=== PATIENT | male | born 1950 | race Hispanic/Latino ===

== ENCOUNTER 2016-08-10 13:25 | Emergency (ER) | payer SELFPAY ==
[2016-08-10 13:31] VITALS: BMI 32.3
--- NOTE | 2016-08-10 13:44 | ED PDOC ---
Arrival/HPI - General Time Seen by Provider: 08/10/16 13:33 Historian: Patient - History of Present Illness Narrative History of Present Illness (Text): 08/10/16 13:42 Patient is a 66 year old male who presents to the emergency department from PMD for irregular heartrate and elevated blood pressure at the office prior to arrival. Patient reports L lower back pain since May. He reports that the pain is worse with movement. He reports that he thought the pain would resolve (as he had similar pain many years ago) but since it persisted for 3 months he visisted his PMD today. He denies mildline pain. He denies fever, weakness, numbness, urinary or bowel incontinence or saddle anesethsia. He reports that the PA in the office said his blood pressure was high and he had "an irregular heart rate" so she sent him in. he denies chest pain, shortness of breath, headache or vision changes. he reports compliance with BP medication. Past Medical History - Provider Review Nursing Documentation Reviewed: Yes - Tetanus Immunization Tetanus Immunization: Unknown - Cardiac Hx Hypertension: Yes - Psychiatric Hx Depression: No Hx Emotional Abuse: No Hx Physical Abuse: No Hx Substance Use: No - Surgical History Hx Appendectomy: Yes Hx Inguinal Hernia Repair: Yes (1989) Hx Tonsillectomy: Yes - Suicidal Assessment Feels Threatened In Home Enviroment: No Family/Social History - Physician Review Nursing Documentation Reviewed: Yes Family/Social History: Unknown Family HX Hx Alcohol Use: Yes Hx Substance Use: No Hx Substance Use Treatment: No Allergies/Home Meds Allergies/Adverse Reactions: Allergies No Known Allergies Allergy (Verified 08/10/16 13:31) Home Medications: Home Meds Medication Instructions Recorded Confirmed Aspirin [Aspir 81] 81 mg PO DAILY 06/25/13 08/10/16 Hydrochlorothiazide [Microzide] 12.5 mg PO DAILY 08/10/16 08/10/16 Losartan [Cozaar] 100 mg PO DAILY 08/10/16 08/10/16 Review of Systems - Review of Systems Constitutional: absent: Fatigue, Weight Change, Fevers, Night Sweats Eyes: absent: Vision Changes, Photophobia ENT: absent: Hearing Changes Respiratory: absent: SOB, Cough, Sputum, Wheezing Cardiovascular: absent: Chest Pain, Palpitations, Edema, Calf Pain, HUDSON, Orthopnea, Syncope Gastrointestinal: absent: Abdominal Pain, Constipation, Diarrhea, Nausea, Vomiting Genitourinary Male: absent: Dysuria Musculoskeletal: Back Pain (chronic x 3 months) Skin: absent: Rash Neurological: Other (No weakness or numbness). absent: Headache, Dizziness, Gait Changes, Speech Changes Endocrine: absent: Diaphoresis Psychiatric: absent: Depression Physical Exam Vital Signs Temp Pulse Resp BP Pulse Ox 08/10/16 16:07 76 18 147/106 H 97 08/10/16 13:45 98.2 F 87 18 143/101 H 97 Temperature: Afebrile Blood Pressure: Hypertensive Pulse: Regular Respiratory Rate: Normal Appearance: Positive for: Well-Appearing, Non-Toxic, Comfortable Pain Distress: None Mental Status: Positive for: Alert and Oriented X 3 - Systems Exam Head: Present: Atraumatic, Normocephalic Pupils: Present: PERRL Extroacular Muscles: Present: EOMI Conjunctiva: Present: Normal Mouth: Present: Moist Mucous Membranes Neck: Present: Normal Range of Motion Respiratory/Chest: Present: Clear to Auscultation, Good Air Exchange. No: Respiratory Distress, Accessory Muscle Use Cardiovascular: Present: Regular Rate and Rhythm, Normal S1, S2. No: Murmurs Abdomen: Present: Normal Bowel Sounds. No: Tenderness, Distention, Peritoneal Signs Back: Present: Normal Inspection, Other (area of pain to L lumbar region (non- tender on exam)). No: Midline Tenderness Upper Extremity: Present: Normal Inspection. No: Cyanosis, Edema Lower Extremity: Present: Normal Inspection. No: Edema Neurological: Present: GCS=15, CN II-XII Intact, Speech Normal, Motor Func Grossly Intact, Normal Sensory Function, Gait Normal Skin: Present: Warm, Dry, Normal Color. No: Rashes Psychiatric: Present: Alert, Oriented x 3, Normal Insight, Normal Concentration Medical Decision Making ED Course and Treatment: Impression: 66 year old male presents from PMD for irregular heartrate and elevated blood pressure. He has asymptomatic htn on arrival. No ekg or rhythm strip was sent with patient and i am unaware what irregular heart rate was. Denies chest pain. Spoke to Dr. Cruz who is also not aware. Will evaluate chronic back pain with imagina and ua. Plan: Presentation not consistent with hypertensive urgency. Will get UA to evaluate back pain. --EKG -- XR lumbar spine Progress Notes: EKG shows NSR at 78 BPM with left axis deviation and LVH. QRS:128. No acute ST elevations. No prior for comparison but no irregularity noted and clear p waves. PROCEDURE: Radiographs of the Lumbar Spine. Electronics Recycler : Daniel Solorio MD FINDINGS: BONES: Vertebral bodies are maintained in height. Transverse processes and posterior elements appear intact. There is narrowing of the L2-3 intervertebral disc space consistent with degenerative disc disease. There is grade 1 anterolisthesis at L4-5. There is no evidence of spondylolysis. DISC SPACES: Narrowing of the L2-3 disc space. Remaining disc spaces are maintained in height. OTHER FINDINGS: Right hip arthroplasty. Two left lower pole renal calculi, 8-9 mm each. IMPRESSION: Degenerative disc disease L2-3. Grade 1 anterolisthesis at L4-5. Two left lower pole renal calculi as above. 08/10/16 16:11 Patient was made aware of his renal stones. UA negative. He continues to have asymptomatic htn. He was instructed on warning signs and the importance of avoiding salt, taking medication and following up with PMD. He was also instructed on the importance of following up with [facility] for likely holter monitor for further evaluation of "irregular rhythm" seen by LORNE. He was also instructed on importance of following up with PMD for persistent back pain with likely MRI/further imaging and further orthopedic evaluation. - Lab Interpretations Lab Results: Lab Results 08/10/16 15:30: Urine Color Yellow, Urine Appearance Clear, Urine pH 6.5, Ur Specific Ross 1.025, Urine Protein 100 H, Urine Glucose (UA) Negative, Urine Ketones Negative, Urine Blood Negative, Urine Nitrate Negative, Urine Bilirubin Negative, Urine Urobilinogen 0.2, Ur Leukocyte Esterase Negative, Urine RBC 0 - 2, Urine WBC Negative - RAD Interpretation Radiology Orders: 08/10/16 13:44 LS SPINE WITH OBL > 18 YRS OLD [RAD] Stat - EKG Interpretation Interpreted by ED Physician: Yes Type: 12 lead EKG - Medication Orders Current Medication Orders: Discontinued Medications Ketorolac Tromethamine (Toradol) 60 mg IM STAT STA Stop: 08/10/16 13:45 Last Admin: 08/10/16 13:56 Dose: 60 MG IM Administration Charges Document 08/10/16 13:56 [facility] (Rec: 08/10/16 13:57 [facility] [place]-[id number]) Injection Site MAR Injection Site Right Deltoid Charges for Administration # of IM Administrations 1 - Scribe Statement The provider has reviewed the documentation as recorded by the Edwigeibedd Woodward All medical record entries made by the Scribe were at my direction and personally dictated by me. I have reviewed the chart and agree that the record accurately reflects my personal performance of the history, physical exam, medical decision making, and the department course for this patient. I have also personally directed, reviewed, and agree with the discharge instructions and disposition. Disposition/Present on Arrival - Present on Arrival Any Indicators Present on Arrival: No History of DVT/PE: No History of Uncontrolled Diabetes: No Urinary Catheter: No History Surgical Site Infection Following: None - Disposition Have Diagnosis and Disposition been Completed?: Yes Diagnosis: Back pain, Hypertension Disposition: HOME/ ROUTINE Disposition Time: 16:14 Patient Plan: Discharge Condition: GOOD Additional Instructions: Follow up with Dr. Cruz on sunday for further evaluation of chronic back pain and worsening htn. Return to ED if condition worsens. Follow-up with cardiology as below or as requested by Dr. Cruz for further evaluation. Referrals: Alex Cruz MD [Primary Care Provider] - Follow up with primary Cheryl Lopes MD [Staff Provider] - Follow up with primary
[2016-08-10 13:50] VITALS: RESP 18; TEMP 98.2; O2SAT 97
--- NOTE | 2016-08-10 14:48 | RAD ---
PROCEDURE: Radiographs of the Lumbar Spine. HISTORY: lumbar back pain COMPARISON: No prior. FINDINGS: BONES: Vertebral bodies are maintained in height. Transverse processes and posterior elements appear intact. There is narrowing of the L2-3 intervertebral disc space consistent with degenerative disc disease. There is grade 1 anterolisthesis at L4-5. There is no evidence of spondylolysis. DISC SPACES: Narrowing of the L2-3 disc space. Remaining disc spaces are maintained in height. OTHER FINDINGS: Right hip arthroplasty. Two left lower pole renal calculi, 8-9 mm each. IMPRESSION: Degenerative disc disease L2-3. Grade 1 anterolisthesis at L4-5. Two left lower pole renal calculi as above.
[2016-08-10 15:54] LABS: PH,URINE 6.5 (4.7-8.0); URINE BILIRUBIN NEGATIVE (NEGATIVE); URINE BLOOD NEGATIVE (NEGATIVE); URINE GLUCOSE (UA) NEGATIVE (NEGATIVE); URINE KETONE NEGATIVE (NEGATIVE); URINE LEUKOCYTE ESTERASE NEGATIVE Leu/uL (NEGATIVE); URINE PROTEIN 100 mg/dL (<30 mg/dL); URINE UROBILINOGEN 0.2 E.U./dL (<1 E.U./dL)
[2016-08-10 15:57] LABS: URINE APPEARANCE CLEAR (CLEAR); URINE COLOR YELLOW (YELLOW)
[2016-08-10 16:00] LABS: URINE RBC 0 - 2 /hpf (0-2); URINE WBC NEGATIVE /hpf (0-6)
[2016-08-10 16:08] VITALS: BP 147/106; PULSE 76
--- NOTE | 2016-08-10 18:12 | CARD ---
APPROVED REPORT EKG Measurement Heart [id number] <Conclusion> Poor data quality, interpretation may be adversely affected Normal sinus rhythm Left axis deviation Left ventricular hypertrophy with QRS widening Cannot rule out Septal infarct, age undetermined Abnormal ECG
== END 2016-08-10 16:17 | disposition home or self-care (01) ==
LOC: ED 13:25
DX: M54.9 Dorsalgia, unspecified (principal); I10 Essential (primary) hypertension
CPT/HCPCS: 72110; 81001; 93005; 96372; 99283; J1885